=== PATIENT | female | born 1975 | race Native Hawaiian/Other Pacific Islander ===

== ENCOUNTER 2016-11-07 11:49 | Emergency (ER) | payer OTHER ==
[~2016-11-07] VITALS: Ht 157.5 cm; Wt 63.5 kg
[2016-11-07 13:33] LABS: PLATELET COUNT 324 K/uL (152-353)
[2016-11-07 13:38] LABS: POTASSIUM 4.1 mmol/L (3.6-5.2); SODIUM 138 mmol/L (136-145)
[2016-11-07 15:33] VITALS: BP 122/68; TEMP 98
== END 2016-11-07 15:30 | disposition home or self-care (01) ==
LOC: ED 11:49
DX: K29.00 Acute gastritis without bleeding (principal); B96.81 Helicobacter pylori [H. pylori] as the cause of diseases classified elsewhere
CPT/HCPCS: 36415; 80053; 82150; 83690; 85027; 86318; 93005; 99283

== ENCOUNTER 2016-12-08 07:20 | Emergency (ER) | payer OTHER ==
[~2016-12-08] VITALS: Ht 160 cm; Wt 68.0 kg
[2016-12-08 07:23] VITALS: TEMP 98.5
[2016-12-08 08:16] LABS: PLATELET COUNT 301 K/uL (152-353)
[2016-12-08 09:15] VITALS: BP 110/63
== END 2016-12-08 09:20 | disposition home or self-care (01) ==
LOC: ED 07:20
DX: K04.7 Periapical abscess without sinus (principal); R60.9 Edema, unspecified
CPT/HCPCS: 36415; 85027; 99283

== ENCOUNTER 2016-12-22 09:22 | Emergency (ER) | payer OTHER ==
[~2016-12-22] VITALS: Ht 160 cm; Wt 69.4 kg
[2016-12-22 09:46] LABS: PLATELET COUNT 304 K/uL (152-353)
[2016-12-22 09:53] LABS: POTASSIUM 3.6 mmol/L (3.6-5.2); SODIUM 136 mmol/L (136-145)
[2016-12-22 11:16] VITALS: BP 150/89; TEMP 98.6
== END 2016-12-22 11:20 | disposition home or self-care (01) ==
LOC: ED 09:22
PROVIDERS: Specialist
DX: O20.0 Threatened abortion (principal); N76.0 Acute vaginitis
CPT/HCPCS: 80048; 84702; 85027; 87210; 87590; 99285

== ENCOUNTER 2016-12-26 09:41 | Emergency (ER) | payer OTHER ==
[~2016-12-26] VITALS: Ht 160 cm; Wt 69.4 kg
[2016-12-26 09:55] VITALS: TEMP 98.3
[2016-12-26 10:30] LABS: PLATELET COUNT 286 K/uL (152-353)
[2016-12-26 11:00] VITALS: BP 138/78
== END 2016-12-26 11:15 | disposition home or self-care (01) ==
LOC: ED 09:41
DX: O20.0 Threatened abortion (principal)
CPT/HCPCS: 36415; 84702; 85027; 99283; J1885

== ENCOUNTER 2018-05-14 18:23 | Emergency (ER) | payer OTHER ==
[~2018-05-14] VITALS: Ht 160 cm; Wt 72.6 kg
[2018-05-14 19:53] VITALS: BP 148/82; TEMP 97.9
== END 2018-05-14 19:53 | disposition home or self-care (01) ==
LOC: ED 18:23
DX: K08.89 Other specified disorders of teeth and supporting structures (principal); K02.9 Dental caries, unspecified; K04.7 Periapical abscess without sinus
CPT/HCPCS: 99282

== ENCOUNTER 2018-11-12 09:46 | Emergency (ER) | payer OTHER ==
[~2018-11-12] VITALS: Ht 160 cm; Wt 73.0 kg
[2018-11-12 10:47] LABS: PLATELET COUNT 220 K/uL (152-353)
[2018-11-12 12:35] VITALS: BP 110/62; TEMP 98.5
== END 2018-11-12 12:35 | disposition home or self-care (01) ==
LOC: ED 09:46
PROVIDERS: Family Medicine
DX: R10.32 Left lower quadrant pain (principal); N83.209 Unspecified ovarian cyst, unspecified side
CPT/HCPCS: 36415; 80053; 81000; 81025; 82150; 83690; 85027; 96374; 96375; 99284; J1885; J2405

== ENCOUNTER 2019-03-05 11:16 | Emergency (ER) | payer OTHER ==
[~2019-03-05] VITALS: Ht 160 cm; Wt 73.0 kg
[2019-03-05 11:25] VITALS: TEMP 98.1
[2019-03-05 12:10] LABS: PLATELET COUNT 284 K/uL (152-353)
[2019-03-05 16:12] VITALS: BP 168/89
== END 2019-03-05 16:12 | disposition home or self-care (01) ==
LOC: ED 11:16
PROVIDERS: Emergency Medicine
DX: R10.11 Right upper quadrant pain (principal); R51 Headache
CPT/HCPCS: 80053; 81000; 82150; 83690; 85027; 96374; 96375; 99284; J2175; J2405; Q9963

== ENCOUNTER 2019-08-17 08:50 | Emergency (ER) | payer OTHER ==
[~2019-08-17] VITALS: Ht 160 cm; Wt 72.6 kg
[2019-08-17 08:59] VITALS: TEMP 97.7
[2019-08-17 10:04] VITALS: BP 122/80
== END 2019-08-17 10:05 | disposition home or self-care (01) ==
LOC: ED 08:50
DX: J06.9 Acute upper respiratory infection, unspecified (principal)
CPT/HCPCS: 87502; 87651; 99283

== ENCOUNTER 2020-03-30 21:18 | Emergency (ER) | payer OTHER ==
[~2020-03-30] VITALS: Ht 160 cm; Wt 72.6 kg
[2020-03-30 21:50] LABS: PLATELET COUNT 302 K/uL (152-353)
[2020-03-30 22:12] LABS: POTASSIUM 3.8 mmol/L (3.6-5.2)
[2020-03-31 00:23] VITALS: TEMP 98.5
[2020-03-31 00:43] VITALS: BP 149/72
== END 2020-03-31 00:43 | disposition home or self-care (01) ==
LOC: ED 21:18
PROVIDERS: Emergency Medicine Emergency Medical Services
DX: R11.2 Nausea with vomiting, unspecified (principal); Z20.828 Contact with and (suspected) exposure to other viral communicable diseases
CPT/HCPCS: 36415; 80053; 81000; 83690; 85027; 87635; 96361; 96365; 96374; 96375; 96376; 99284; J1885; J2175; J2405; U0003

== ENCOUNTER 2020-11-12 10:37 | Emergency (ER) | payer OTHER ==
[~2020-11-12] VITALS: Ht 160 cm; Wt 72.6 kg
[2020-11-12 10:49] VITALS: TEMP 98.4
[2020-11-12 11:31] LABS: PLATELET COUNT 269 K/uL (152-353)
[2020-11-12 12:02] LABS: POTASSIUM 4.1 mmol/L (3.6-5.2)
[2020-11-12 12:58] VITALS: BP 122/63
== END 2020-11-12 13:00 | disposition home or self-care (01) ==
LOC: ED 10:37
PROVIDERS: Family Medicine
DX: K29.60 Other gastritis without bleeding (principal); B96.81 Helicobacter pylori [H. pylori] as the cause of diseases classified elsewhere
CPT/HCPCS: 36415; 80053; 81000; 82150; 83690; 85027; 96360; 96375; 99284; J1885; J2405; J3490

== ENCOUNTER 2022-03-14 16:31 | Emergency (ER) | payer OTHER ==
[~2022-03-14] VITALS: Ht 160 cm; Wt 63.5 kg
[2022-03-14 16:42] VITALS: TEMP 99
[2022-03-14 17:03] LABS: PLATELET COUNT 197 K/uL (152-353)
[2022-03-14 17:11] LABS: POTASSIUM 3.6 mmol/L (3.6-5.2)
[2022-03-14 18:15] VITALS: BP 168/92
== END 2022-03-14 18:39 | disposition home or self-care (01) ==
LOC: ED 16:31
PROVIDERS: Hospitalist
DX: R10.84 Generalized abdominal pain (principal); K59.09 Other constipation; U07.1 COVID-19
CPT/HCPCS: 80053; 80320; 81002; 81015; 81025; 83690; 85027; 87502; 87635; 87651; 96360; 96374; 96375; 99284; J1885; J2405; Q9963; U0003

== ENCOUNTER 2022-09-17 09:05 | Emergency (ER) | payer OTHER ==
[~2022-09-17] VITALS: Ht 160 cm; Wt 62.6 kg
[2022-09-17 10:45] VITALS: BP 150/90; TEMP 98.3
== END 2022-09-17 10:45 | disposition home or self-care (01) ==
LOC: ED 09:05
DX: M79.18 Myalgia, other site (principal)
CPT/HCPCS: 81002; 96372; 99283; J1885; J2360